=== PATIENT | male | born 1995 | race Hispanic/Latino ===

== ENCOUNTER 2022-11-29 18:43 | Emergency (ER) | payer OTHER ==
[~2022-11-29] VITALS: Ht 165.1 cm; Wt 59.0 kg
[2022-11-29 20:10] LABS: BASOPHILS % (AUTO) 0.6 % (0.0-5.0); EOSINOPHILS % (AUTO) 1.1 % (0.0-8.0); HEMATOCRIT 41.1 % (42-54); MEAN CORPUSCULAR HEMOGLOBIN 29.9 pg (27.0-33.0); MEAN CORPUSCULAR HGB CONC 34.3 g/dL (32.0-36.0); MEAN CORPUSCULAR VOLUME 87.3 fL (79-99); MONOCYTES % (AUTO) 7.2 % (3.0-13.0); NEUTROPHILS % (AUTO) 67.9 % (40.0-77.0); PLATELET COUNT (AUTO) 168 K/uL (130-400); RED BLOOD CELL COUNT(AUTO) 4.71 MIL/uL (4.50-6.20); RED CELL DISTRIBUTION WIDTH 11.9 % (11.0-15.5); WHITE BLOOD COUNT (AUTO) 6.4 K/uL (4.8-10.8)
[2022-11-29 20:22] LABS: CREATININE 1.1 mg/dL (0.5-1.5); POTASSIUM 3.4 mmol/L (3.5-5.1)
[2022-11-29 20:27] LABS: ALBUMIN 4.3 g/dL (3.5-5.0); TOTAL PROTEIN, SERUM 7.4 g/dL (6.0-8.3)
[2022-11-29] MEDS ORDERED: ALBU6.7H14 IH (20:33)
[2022-11-29 20:46] VITALS: BP 127/74
== END 2022-11-29 20:51 | disposition home or self-care (01) ==
LOC: EDH 18:43
DX: J45.909 Unspecified asthma, uncomplicated (principal)
CPT/HCPCS: 36415; 80053; 85025